=== PATIENT | female | born 1935 | race Hispanic/Latino ===

== ENCOUNTER 2016-10-08 08:51 | Outpatient (CLI) | payer MEDICARE ==
--- NOTE | 2016-10-08 12:16 | XRay Report ---
Bilateral knee: History: Bilateral knee pain. Findings: There is total right and left knee noted. The femoral and tibial component is anatomic and in alignment. No fracture. No soft tissue calcification or joint effusion. Impression: Stable right and left total knee.
--- NOTE | 2016-10-08 12:18 | XRay Report ---
Bilateral hips: History: Hip pain. Findings: Mild arthritic changes at the articular surface of acetabulum right and left hip joint. No fracture, dislocation or soft tissue calcification. Impression: Mild arthritic changes right and left hip
--- NOTE | 2016-10-08 14:03 | XRay Report ---
THORACIC SPINE THREE VIEWS: 10/08/16 08:51:00 CLINICAL: Back pain. FINDINGS: Mild scoliosis and mild exaggerated thoracic kyphosis. Relatively uniform decreased height of multiple midthoracic vertebral bodies. No fracture lines identified. Multilevel degenerative disc disease with narrowing of the disc space, endplate sclerosis and anterior osteophytes. The pedicles are intact. IMPRESSION: Multiple chronic mid wedge compression fractures with moderate degenerative disc disease and spondylosis. No acute fracture.
--- NOTE | 2016-10-08 14:05 | XRay Report ---
CERVICAL SPINE THREE VIEWS: 10/08/16 08:51:00 CLINICAL: Neck pain. FINDINGS: Exaggerated cervical lordosis. Status post anterior fusion with a plate and screws at C6-7. Large anterior osteophytes from C3-4 through C5-6. The odontoid and C1 are intact. No fracture. Normal soft tissues. IMPRESSION: Status post anterior fusion at C6-7. Moderate degenerative change with bridging osteophytes from C3-4 through C5-6.
--- NOTE | 2016-10-08 14:23 | XRay Report ---
Bilateral shoulder: History: Bilateral shoulder pain. Findings: Moderate to severe arthritic changes at a.c. joint bilaterally. Mild to moderate arthritic changes glenohumeral joint bilaterally. Normal acromiohumeral space. No fracture. No soft tissue calcification. Impression: Arthritic changes as detailed above. No acute fracture.
--- NOTE | 2016-10-08 14:24 | XRay Report ---
LUMBAR SPINE THREE VIEWS: 10/08/16 08:51:00 CLINICAL: Back pain. COMPARISON: 04/13/12 FINDINGS: Stable L1 compression fracture with depression of superior endplate. No change compared to the prior exam. No new fracture. Normal alignment. Stable multilevel degenerative disc disease with anterior osteophytes from L1 to through L4-5. Multilevel facet joint sclerosis. The pedicles are intact. Normal soft tissues. IMPRESSION: Stable remote L1 compression fracture. Multilevel degenerative change and facet joint arthropathy.
== END 2016-10-08 08:52 | disposition home or self-care (01) ==
LOC: SPVIMAG 08:51
PROVIDERS: ATTEND Internal Medicine
DX: M48.56XA Collapsed vertebra, not elsewhere classified, lumbar region, initial encounter for fracture (principal); M48.54XA Collapsed vertebra, not elsewhere classified, thoracic region, initial encounter for fracture; M19.011 Primary osteoarthritis, right shoulder; M19.012 Primary osteoarthritis, left shoulder; M16.0 Bilateral primary osteoarthritis of hip; M51.36 Other intervertebral disc degeneration, lumbar region; M25.78 Osteophyte, vertebrae; M43.22 Fusion of spine, cervical region; M47.892 Other spondylosis, cervical region; M41.84 Other forms of scoliosis, thoracic region; M51.34 Other intervertebral disc degeneration, thoracic region; M47.894 Other spondylosis, thoracic region; M25.561 Pain in right knee; M25.562 Pain in left knee
CPT/HCPCS: 72040; 72070; 72100; 73521

== ENCOUNTER 2016-11-04 08:16 | Outpatient (CLI) | payer MEDICARE ==
--- NOTE | 2016-11-04 14:18 | Mammography Report ---
BILATERAL DIGITAL SCREENING MAMMOGRAM with CAD : 11/04/16 08:16:00 CLINICAL: Routine screening. COMPARISON:11/04/15 FINDINGS: The breasts are heterogeneously dense, which may obscure small masses. No mass, architectural distortion or suspicious calcifications. IMPRESSION: No mammographic evidence of malignancy. BI-RADS CATEGORY: 2 -- Benign RECOMMENDATION: Routine mammographic screening in one year. COMMENT: Patient follow-up letters are generated by our [employer] application.
== END 2016-11-04 08:17 | disposition home or self-care (01) ==
LOC: SPVWC 08:16
PROVIDERS: ATTEND Internal Medicine
DX: Z12.31 Encounter for screening mammogram for malignant neoplasm of breast (principal)
CPT/HCPCS: 77067; G0202

== ENCOUNTER 2017-11-08 08:06 | Outpatient (CLI) | payer MEDICARE ==
--- NOTE | 2017-11-08 14:36 | Mammography Report ---
BILATERAL DIGITAL SCREENING MAMMOGRAM with CAD : 11/08/17 08:06:00 CLINICAL: Routine screening. COMPARISON:11/04/16 FINDINGS: The breasts are heterogeneously dense, which may obscure small masses. No mass, architectural distortion or suspicious calcifications. IMPRESSION: No mammographic evidence of malignancy. BI-RADS CATEGORY: 2 -- Benign RECOMMENDATION: Routine mammographic screening in one year. COMMENT: Patient follow-up letters are generated by our [employer] application.
== END 2017-11-08 08:07 | disposition home or self-care (01) ==
LOC: SPVWC 08:06
PROVIDERS: ATTEND Internal Medicine
DX: Z12.31 Encounter for screening mammogram for malignant neoplasm of breast (principal)
CPT/HCPCS: 77067

== ENCOUNTER 2018-11-09 08:08 | Outpatient (CLI) | payer MEDICARE ==
--- NOTE | 2018-11-09 10:33 | Mammography Report ---
DIGITAL SCREENING MAMMOGRAM WITH TOMOSYNTHESIS WITH CAD, 11/09/2018 INDICATION: Screening. TECHNIQUE: Digital bilateral 2D and 3D mammography with tomosynthesis was obtained in the craniocaud al and mediolateral oblique projections. Computer-Aided Detection (CAD) analysis was used for interp retation of this study. COMPARISON: 11/08/2017, 11/04/2016 FINDINGS: Breast Density: The breasts are heterogeneously dense, which may obscure small masses. There is no evidence of dominant mass, suspicious calcifications or architectural distortion in eithe r breast. No significant interval change from prior exam. IMPRESSION: No evidence of malignancy. BI-RADS Category 1: Negative. No mammographic evidence of malignancy. Recommend routine screening mammography in one year. A "normal" or negative report should not discourage follow up or biopsy of a clinically significant f inding. A written summary of these findings will be mailed to the patient. The patient will be entered into a mammography reporting system which will generate a reminder letter for the patient's next appointmen t at the appropriate interval. The [employer] recommends yearly mammograms starting at age 40 and continuing as l chint[place] as a woman is in good health. Breast MRI is recommended for women with an approximate 20-25% or greater lifetime risk of breast cancer, including women with a strong family history of breast or ova brigitte cancer or who have been treated for Hodgkin's disease. Signer Name: Shayy Wilson MD Signed: 11/09/2018 10:29 AM Workstation Name: [id number]
== END 2018-11-09 08:09 | disposition home or self-care (01) ==
LOC: SPVWC 08:08
PROVIDERS: ATTEND Internal Medicine
DX: Z12.31 Encounter for screening mammogram for malignant neoplasm of breast (principal)
CPT/HCPCS: 77063; 77067

== ENCOUNTER 2019-11-14 08:34 | Outpatient (CLI) | payer MEDICARE ==
--- NOTE | 2019-11-14 10:24 | Mammography Report ---
BILATERAL DIGITAL SCREENING MAMMOGRAM WITH CAD HISTORY: Screening TECHNIQUE: Routine digital mammographic imaging performed. This examination was interpreted with yuliana prado benefit of Computer-aided Detection analysis. COMPARISON: 11/14/2019, 11/09/2018, 11/08/2017, -17. FINDINGS: Breast Density: heterogeneously dense breast parenchymal pattern which somewhat lessens the sensitivi ty of the evaluation. Digital CC and MLO views demonstrate no mammographic evidence of malignancy. IMPRESSION: No mammographic evidence of malignancy. If the clinical examination remains stable, recommend bilate ral mammogram in approximately one year. BIRADS 1: Negative. FURTHER INFORMATION: According to the [employer], yearly mammograms are recommend ed starting at age 40 and continuing as long as a woman is in good health. Clinical Breast Exams shou ld be part of a periodic health exam-about every 3 years for women in their 20s and 30s and every yea r for women 40 and over. Breast self exam is an option for women starting in their 20s. Any breast ch sumi noted on a breast self exam should be reported promptly to the patient's healthcare provider. Br east MRI is recommended for women with an approximately 20-25% or greater lifetime risk of breast can cer, including women with a strong family history of breast or ovarian cancer and women who have been treated for Hodgkin's disease. A negative Mammography report should not discourage follow up or biopsy of a clinically significant f inding and/or abnormality. Dense breast tissue may obscure small neoplasms. The patient will be entered into a reminder system with a target due date for the next screening mamm ogram. Signer Name: Jayant Pettit MD Signed: 11/14/2019 10:20 AM Workstation Name: [id number]
== END 2019-11-14 08:35 | disposition home or self-care (01) ==
LOC: SPVWC 08:34
PROVIDERS: ATTEND Internal Medicine
DX: Z12.31 Encounter for screening mammogram for malignant neoplasm of breast (principal)
CPT/HCPCS: 77067

== ENCOUNTER 2021-10-07 08:04 | Outpatient (CLI) | payer MEDICARE ==
--- NOTE | 2021-10-07 09:58 | XRay Report ---
CERVICAL SPINE 4 VIEWS INDICATION: MULTIPLE JOINT PAIN. COMPARISON: 10/08/2016 IMPRESSION: Stable appearance of the anterior fusion at C6-7 with bony fusion of the C6-7 disc space . There is normal alignment. Moderate discogenic DJD with large bridging anterior osteophytes from C3 -4 through C6-7 are again noted. Degenerative findings have progressed slightly since the previous ex am. There are mild diffuse arthritic changes in the facet joints without hypertrophy. No acute fractu re or bone lesion is detected. The prevertebral soft tissues are unremarkable. THORACIC SPINE 3 VIEWS INDICATION: MULTIPLE JOINT PAIN. COMPARISON: 10/08/2016 IMPRESSION: There is mild levocurvature near the thoracolumbar junction. There is normal alignment o n the lateral view. Moderate to severe multilevel discogenic DJD is again seen with minimal progressi on since the previous exam. No evidence for compression deformity, posterior rib lesion or bone lesi on. No acute soft tissue abnormality. LUMBOSACRAL SPINE 3 VIEWS INDICATION: MULTIPLE JOINT PAIN. COMPARISON: 10/08/2016 IMPRESSION: Mild scoliosis in the lower thoracic and lumbar spine appears stable. There is normal al ignment on the lateral view. Moderate to severe multilevel discogenic DJD and facet arthropathy are p resent with mild progression since the previous exam. Appears to be a stable chronic superior endpla te fracture at L1 with 10-20% loss of height. Moderate symmetric degenerative changes at the SI joint s are stable. No acute osseous or soft tissue abnormality. PELVIS 3 VIEWS INDICATION: MULTIPLE JOINT PAIN. COMPARISON: None. IMPRESSION: No evidence for acute fracture, diastasis or bone lesion. There are mild to moderate sym metric degenerative changes at the SI joints. Bilateral hips are anatomic in alignment with minimal degenerative changes. No evidence for osteonecrosis. Surgical clips overlie the right pelvis which ma y represent previous hernia repair, correlate with history. Signer Name: Moreno Hamlin Jr, MD Signed: 10/07/2021 9:54 AM Workstation Name: [id number]
== END 2021-10-07 08:05 | disposition home or self-care (01) ==
LOC: XRAY 08:04
PROVIDERS: ATTEND Internal Medicine
DX: M16.0 Bilateral primary osteoarthritis of hip (principal); M25.78 Osteophyte, vertebrae; M47.814 Spondylosis without myelopathy or radiculopathy, thoracic region; M47.815 Spondylosis without myelopathy or radiculopathy, thoracolumbar region; M47.898 Other spondylosis, sacral and sacrococcygeal region
CPT/HCPCS: 72040; 72072; 72100; 72190